=== PATIENT | female | born 1955 | race Two or more races ===

== ENCOUNTER 2023-03-05 09:25 | Emergency (ER) | payer OTHER, MEDICAID ==
[~2023-03-05] VITALS: Ht 157.5 cm; Wt 92.7 kg
[2023-03-05 10:18] VITALS: BP 125/53; PULSE 67; RESP 18; TEMP 97.8; O2SAT 98
== END 2023-03-05 11:36 ==
LOC: ER 09:25
DX: S42.451A Displaced fracture of lateral condyle of right humerus, initial encounter for closed fracture (principal); M19.90 Unspecified osteoarthritis, unspecified site; Z98.890 Other specified postprocedural states; W01.0XXA Fall on same level from slipping, tripping and stumbling without subsequent striking against object, initial encounter; Y93.89 Activity, other specified; Y92.89 Other specified places as the place of occurrence of the external cause; Y99.8 Other external cause status
CPT/HCPCS: 29105; 73080